=== PATIENT | female | born 1955 | race Hispanic/Latino ===

== ENCOUNTER 2023-10-12 07:57 | Outpatient (CLI) | payer MEDICARE | END 2023-10-12 07:58 | disposition home or self-care (01) | LOC: BICMAMMO 07:57 | PROVIDERS: ATTEND Nurse Practitioner Family | DX: N64.1 Fat necrosis of breast (principal) | CPT/HCPCS: 19083; 76642; 77066; 87070; 87205; G0279; 88112; 88305; 88341; 88342 ==